=== PATIENT | male | born 1965 | race Caucasian/White ===

== ENCOUNTER 2017-08-07 07:47 | Observation (INO) | payer BC ==
--- NOTE | 2017-08-07 08:03 | ED ---
Chest Pain HPI - General Chief Complaint: Chest Pain Stated Complaint: CHEST PAIN Time Seen by Provider: 08/07/17 07:54 Source: patient, RN notes reviewed Mode of arrival: wheelchair Limitations: no limitations - History of Present Illness Initial Comments: This is a 52-year-old male history of hypertension states he started having midsternal chest tightness and achiness at work yesterday. He's not sure whether is anxiety related or not having difficulty with some costovertebral the pain started it persisted intermittently throughout the night recently occurring currently he is pain-free he does state he took his medications this morning including 2 full-strength aspirin. He has 6 mother supplements. He had no known history of heart disease he is nonsmoker no family history of early heart disease. MD Complaint: chest pain - Related Data Home Medications Medication Instructions Recorded Confirmed Aspirin 81 mg PO DAILY 10/15/14 08/07/17 Flaxseede(Dose Unknown) 1 tab PO DAILY 10/15/14 08/07/17 Lysine(Dose Unknown) 1 tab PO DAILY 10/15/14 08/07/17 Ubidecarenone [Co Q-10] 200 mg PO DAILY 10/15/14 08/07/17 Cyanocobalamin [Vitamin B-12] 500 mcg PO DAILY 02/20/15 08/07/17 Arginine [l-Arginine] 500 mg PO DAILY 08/07/17 08/07/17 Metoprolol Tartrate [Lopressor] 100 mg PO DAILY 08/07/17 08/07/17 Vitamin E 1,000 unit PO DAILY 08/07/17 08/07/17 Allergies Allergy/AdvReac Type Severity Reaction Status Date / Time No Known Allergies Allergy Verified 08/07/17 08:27 Review of Systems ROS Statement: Those systems with pertinent positive or pertinent negative responses have been documented in the HPI. ROS Other: All systems not noted in ROS Statement are negative. EKG Findings - EKG Results: EKG: interpreted by ARELY, sinus rhythm (Normal sinus rhythm of 76. Interval 158 QRS duration 80 QT since QTC 360/[address]-T wave changes.) Past Medical History Past Medical History: Chest Pain / Angina, Hypertension, Osteoarthritis (OA) Additional Past Medical History / Comment(s): hx gout History of Any Multi-Drug Resistant Organisms: None Reported Past Surgical History: Joint Replacement Additional Past Surgical History / Comment(s): LEFT HIP 10/21/14, oral surgery, TOTAL RIGHT HIP 03/02/15 Past Anesthesia/Blood Transfusion Reactions: No Reported Reaction Past Psychological History: No Psychological Hx Reported Smoking Status: Never smoker Past Alcohol Use History: Daily Past Drug Use History: None Reported - Past Family History Mother Family Medical History: No Reported History General Exam - General Exam Comments Initial Comments: This a well-developed well-nourished awake alert oriented times 3 male Limitations: no limitations General appearance: alert, anxious Head exam: Present: atraumatic, normocephalic, normal inspection Eye exam: Present: normal appearance, PERRL, EOMI. Absent: scleral icterus, conjunctival injection, periorbital swelling ENT exam: Present: normal exam, mucous membranes moist Neck exam: Present: normal inspection. Absent: tenderness, meningismus, lymphadenopathy Respiratory exam: Present: normal lung sounds bilaterally. Absent: respiratory distress, wheezes, rales, rhonchi, stridor Cardiovascular Exam: Present: regular rate, normal rhythm, normal heart sounds. Absent: systolic murmur, diastolic murmur, rubs, gallop, clicks GI/Abdominal exam: Present: soft, normal bowel sounds. Absent: distended, tenderness, guarding, rebound, rigid Extremities exam: Present: normal inspection, full ROM, normal capillary refill. Absent: tenderness, pedal edema, joint swelling, calf tenderness Back exam: Present: normal inspection Neurological exam: Present: alert, oriented X3, CN II-XII intact Psychiatric exam: Present: normal affect, normal mood Skin exam: Present: warm, dry, intact, normal color. Absent: rash Course Vital Signs 08/07/17 08/07/17 08/07/17 07:50 07:59 08:48 Temperature 98.3 F Pulse Rate 75 70 69 Respiratory 16 20 20 Rate Blood Pressure 194/116 218/122 184/122 O2 Sat by Pulse 99 99 98 Oximetry 08/07/17 08/07/17 08/07/17 09:15 09:20 09:36 Temperature Pulse Rate 68 68 67 Respiratory 20 20 18 Rate Blood Pressure 192/108 198/113 201/99 O2 Sat by Pulse 98 99 98 Oximetry 08/07/17 08/07/17 10:07 10:56 Temperature Pulse Rate 65 65 Respiratory 18 18 Rate Blood Pressure 171/95 170/97 O2 Sat by Pulse 98 98 Oximetry Chest Pain MDM - MDM X-rays reveal no acute findings I did reevaluate the patient several occasions he has no further chest pain. Blood pressure is improved after medications due to the circumstances he will be admitted for evaluation of chest pain. I did discuss this with the patient has family. Critical Care Time Critical Care Time: Yes Critical Care Time: 31 minutes of critical care time which didn't include initial presentation with history physical labs x-rays several reevaluation of the patient discussed with patient family regarding the findings discussed with the admitting physician admission orders and documentation of the above. Disposition Clinical Impression: Unstable angina pectoris, Chest pain, Hypertension Disposition: ADMITTED IP TO THIS [facility] Condition: Stable Referrals: Mark Deng MD [Primary Care Provider] - 1-2 days
[2017-08-07 08:20] LABS: Basophils % (A) 1 %; Eosinophils # (A) 0.1 k/uL (0-0.7); Eosinophils % (A) 2 %; HCT 45.3 % (39.0-53.0); HGB 15.2 gm/dL (13.0-17.5); Lymphocytes # (A) 1.8 k/uL (1.0-4.8); Lymphocytes % (A) 30 %; MCH 33.1 pg (25.0-35.0); MCHC 33.6 g/dL (31.0-37.0); MCV 98.7 fL (80.0-100.0); Mean Platelet Volume 7.2; Monocytes # (A) 0.5 k/uL (0-1.0); Monocytes % (A) 8 %; Neutrophils # (A) 3.4 k/uL (1.3-7.7); Neutrophils % (A) 57 %; Platelet Count 199 k/uL (150-450); RBC 4.59 m/uL (4.30-5.90); RDW 12.7 % (11.5-15.5)
--- NOTE | 2017-08-07 08:22 | XR ---
EXAMINATION TYPE: XR chest 2V DATE OF EXAM: 08/07/2017 COMPARISON: None HISTORY: 52-year-old male with chest pain TECHNIQUE: PA and lateral views FINDINGS: Heart normal size. Aorta and pulmonary vasculature within normal limits. Low lung volumes with crowde d vascular markings. Some focal eventration of the left hemidiaphragm. Patchy medial right basilar an d left basilar opacities are present. No pleural effusion. Likely posttraumatic bony deformity along the distal third clavicle. IMPRESSION: 1. Hypoventilatory changes. 2. Some patchy bibasilar densities probably represent atelectasis. Correlate clinically to exclude in fectious infiltrates.
[2017-08-07 08:26] LABS: ALT 41 U/L (21-72); AST 50 U/L (17-59); Albumin 4.3 g/dL (3.5-5.0); Alkaline Phosphatase 70 U/L (38-126); Anion Gap 15 mmol/L; Blood Urea Nitrogen 17 mg/dL (9-20); Carbon Dioxide 21 mmol/L (22-30); Chloride 103 mmol/L (98-107); Glucose 93 mg/dL (74-99); Magnesium 1.6 mg/dL (1.6-2.3); Potassium 4.3 mmol/L (3.5-5.1); Sodium 139 mmol/L (137-145); Total Bilirubin 0.6 mg/dL (0.2-1.3); Total Protein 7.2 g/dL (6.3-8.2)
[2017-08-07 08:36] LABS: Creatine Kinase 175 U/L (55-170)
[2017-08-07 08:40] LABS: D-Dimer 0.4 mg/L FEU (<0.60); Partial Thromboplastin Time 24.2 sec (22.0-30.0); Prothrombin Time 10.2 sec (9.0-12.0)
[2017-08-07 08:48] LABS: Troponin I <0.012 ng/mL (0.000-0.034)
[2017-08-07 08:59] LABS: Creatine Kinase MB 3.1 ng/mL (0.0-2.4)
[2017-08-07] MEDS ORDERED: METOPROLOL TARTRATE 5 MG/5 ML VIAL IVP STA (09:08)
[2017-08-07] MEDS ORDERED: NITROGLYCERIN SL TABS 0.4 MG TAB SUBLINGUAL PRN (11:08)
[2017-08-07] MEDS ORDERED: HEPARIN SODIUM,PORCINE 5,000 UNIT/ML 1 ML VIAL IV ONE (11:08)
[2017-08-07] MEDS ORDERED: HEPARIN SOD,PORK IN 0.45% NACL 25,000 UNIT in 0.45% NACL 1 500ML.BAG IV SCH (11:15)
[2017-08-07] MEDS: SODIUM CHLORIDE 0.9% 1,000 ML IV SCH (11:52)
--- NOTE | 2017-08-07 13:15 | P.HPIM ---
History of Present Illness H&P Date: 08/07/17 Chief Complaint: Chest pain This is a 52-year-old male history of hypertension states he started having midsternal chest tightness and achiness at work yesterday. He's not sure whether is anxiety related or not having difficulty with some costovertebral the pain started it persisted intermittently throughout the night recently occurring currently he is pain-free he does state he took his medications this morning including 2 full-strength aspirin. He has 6 mother supplements. He had no known history of heart disease he is nonsmoker no family history of early heart disease. While in ED patient workup showed EKG which was normal sinus rhythm without any acute ST or T-wave changes; chest x-ray was done which was unremarkable; patient is being admitted to the hospital for further evaluation of chest pain and cardiology evaluation Review of Systems Constitutional: Denies anorexia, Denies fever, Denies weight loss Eyes: denies blurred vision, denies diplopia, denies discharge Ears, nose, mouth and throat: Denies headache, Denies nasal congestion Cardiovascular: Reports chest pain, Reports high blood pressure, Reports shortness of breath, Denies irregular heart beat, Denies lightheadedness, Denies palpitations Respiratory: Reports dyspnea, Denies wheezing Gastrointestinal: Denies abdominal pain, Denies nausea, Denies vomiting Genitourinary: Denies dysuria, Denies hematuria, Denies polyuria Neurological: Denies balance difficulties, Denies change in mentation, Denies weakness, Denies visual changes Psychiatric: Reports anxiety, Denies confusion Endocrine: Denies cold intolerance, Denies heat intolerance, Denies polydipsia, Denies polyuria Past Medical History Past Medical History: Chest Pain / Angina, Hypertension, Osteoarthritis (OA) Additional Past Medical History / Comment(s): hx gout History of Any Multi-Drug Resistant Organisms: None Reported Past Surgical History: Joint Replacement Additional Past Surgical History / Comment(s): LEFT HIP 10/21/14, oral surgery, TOTAL RIGHT HIP 03/02/15 Past Anesthesia/Blood Transfusion Reactions: No Reported Reaction Past Psychological History: No Psychological Hx Reported Smoking Status: Never smoker Past Alcohol Use History: Daily Past Drug Use History: None Reported - Past Family History Mother Family Medical History: No Reported History Medications and Allergies Home Medications Medication Instructions Recorded Confirmed Type Aspirin 81 mg PO DAILY 10/15/14 08/07/17 History Flaxseede(Dose Unknown) 1 tab PO DAILY 10/15/14 08/07/17 History Lysine(Dose Unknown) 1 tab PO DAILY 10/15/14 08/07/17 History Ubidecarenone [Co Q-10] 200 mg PO DAILY 10/15/14 08/07/17 History Cyanocobalamin [Vitamin B-12] 500 mcg PO DAILY 02/20/15 08/07/17 History Arginine [l-Arginine] 500 mg PO DAILY 08/07/17 08/07/17 History Metoprolol Tartrate [Lopressor] 100 mg PO DAILY 08/07/17 08/07/17 History Vitamin E 1,000 unit PO DAILY 08/07/17 08/07/17 History Allergies Allergy/AdvReac Type Severity Reaction Status Date / Time No Known Allergies Allergy Verified 08/07/17 08:27 Physical Exam Vitals: Vital Signs Temp Pulse Resp BP Pulse Ox 08/07/17 12:17 71 18 151/84 96 08/07/17 10:56 65 18 170/97 98 08/07/17 10:07 65 18 171/95 98 08/07/17 09:36 67 18 201/99 98 08/07/17 09:20 68 20 198/113 99 08/07/17 09:15 68 20 192/108 98 08/07/17 08:48 69 20 184/122 98 08/07/17 07:59 70 20 218/122 99 08/07/17 07:50 98.3 F 75 16 194/116 99 Intake and Output 08/06/17 08/07/17 08/07/17 22:59 06:59 14:59 Other: Weight 106.594 kg - Constitutional General appearance: Present: average body habitus, cooperative, no acute distress - EENT Eyes: Present: anicteric sclerae, EOMI, PERRLA, normal appearance ENT: Present: hearing grossly normal, normal oropharynx Ears: bilateral: normal - Neck Neck: Present: normal ROM. Absent: lymphadenopathy, rigidity, thyromegaly Carotids: negative: bruit present Thyroid: bilateral: normal size, negative: enlarged, nodule - Respiratory Respiratory: bilateral: CTA, negative: rales, rhonchi, wheezing - Cardiovascular Rhythm: regular Heart sounds: normal: S1, S2 Abnormal Heart Sounds: Absent: systolic murmur, diastolic murmur - Gastrointestinal General gastrointestinal: Present: normal bowel sounds, soft. Absent: distended , organomegaly, tenderness - Genitourinary Genitourinary Comment(s): deferred - Integumentary Integumentary: Present: normal turgor. Absent: jaundiced, rash, ulcer - Neurologic Neurologic: Present: CNII-XII intact. Absent: focal deficits - Musculoskeletal Musculoskeletal: Present: gait normal, strength equal bilaterally - Psychiatric Psychiatric: Present: A&O x's 3, appropriate affect, intact judgment & insight Results CBC & Chem 7: 08/07/17 08:07 08/07/17 08:07 Labs: Abnormal Lab Results - Last 24 Hours (Table) 08/07/17 08/07/17 Range/Units 08:07 08:07 Carbon Dioxide 21 L (22-30) mmol/L Total Creatine Kinase 175 H (55-170) U/L CK-MB (CK-2) 3.1 H* (0.0-2.4) ng/mL Assessment and Plan Assessment: 1. Chest pain rule out acute coronary syndrome 2. Uncontrolled hypertension 3. Osteoarthritis 4. DVT prophylaxis Plan; We will admit the patient to cardiac telemetry; monitor EKG and trend troponins and order a lipid panel; we will continue patient on aspirin and beta blockers; we will use sublingual nitroglycerin for chest pain; monitor blood pressure closely and adjust medications if remains elevated; we will recommend echocardiogram and possible stress testing; cardiology is consulted and we will defer cardiac evaluation to cardiology service. Time with Patient: Less than 30
[2017-08-07 14:40] LABS: Creatine Kinase 130 U/L (55-170)
[2017-08-07 14:52] LABS: Creatine Kinase MB 2.3 ng/mL (0.0-2.4); Troponin I <0.012 ng/mL (0.000-0.034)
[2017-08-07 19:11] LABS: Creatine Kinase 112 U/L (55-170)
[2017-08-07 19:24] LABS: Creatine Kinase MB 1.7 ng/mL (0.0-2.4); Troponin I <0.012 ng/mL (0.000-0.034)
[2017-08-07] MEDS ORDERED: METOPROLOL TARTRATE 50 MG TAB PO STA (23:17)
[2017-08-07] MEDS ORDERED: hydrALAZINE HCL 20 MG/ML 1 ML VIAL IVP PRN (23:18)
[2017-08-07] MEDS ORDERED: cloNIDine HCL 0.1 MG TAB PO PRN (23:19)
[2017-08-07] MEDS: amLODIPine 5 MG TAB PO SCH (23:40)
[2017-08-08 07:42] LABS: Cholesterol 176 mg/dL (<200); HDL Cholesterol 103 mg/dL (40-60); LDL Cholesterol,Calculated 49 mg/dL (0-99); Triglycerides 121 mg/dL (<150)
[2017-08-08 07:56] VITALS: RESP 18
--- NOTE | 2017-08-08 08:47 | P.CRDCN ---
History of Present Illness Consult date: 08/08/17 History of present illness: This is a 52-year-old gentleman with history of hypertension who has been experiencing some tightness and chest discomfort for the last week or so. He claims that he works at [employer] and is on his feet all day. Towards the end of the day, He claims that his blood pressure goes up and he feels a tight feeling across the chest. 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 No radiation of the discomfort. Not associated with nausea, vomiting or sweating. In view of ongoing symptoms patient came to the emergency room. His EKGs did not reveal any acute changes. Cardiac enzymes are negative. Patient is comfortable at the time of my examination. However, his blood pressure has been high. He was taking only metoprolol at home. Patient was started on Norvasc and also Catapres when necessary. Patient doesn't have diabetes or hypercholesterolemia. No family history of ischemic heart disease. Patient is being scheduled for stress echocardiogram and also surface echocardiogram. Review of Systems As per the chart Past Medical History Past Medical History: Chest Pain / Angina, Hypertension, Osteoarthritis (OA) Additional Past Medical History / Comment(s): hx gout History of Any Multi-Drug Resistant Organisms: None Reported Past Surgical History: Joint Replacement Additional Past Surgical History / Comment(s): LEFT HIP 10/21/14, oral surgery, TOTAL RIGHT HIP 03/02/15 Past Anesthesia/Blood Transfusion Reactions: No Reported Reaction Smoking Status: Never smoker - Past Family History Father Family Medical History: Hyperlipidemia, Hypertension Additional Family Medical History / Comment(s): AT AGE 8 HAD DIPTHERIA Mother Family Medical History: No Reported History Additional Family Medical History / Comment(s): ARTHRITIS, DJD Medications and Allergies Home Medications Medication Instructions Recorded Confirmed Type Aspirin 81 mg PO DAILY 10/15/14 08/07/17 History Flaxseede(Dose Unknown) 1 tab PO DAILY 10/15/14 08/07/17 History Lysine(Dose Unknown) 1 tab PO DAILY 10/15/14 08/07/17 History Ubidecarenone [Co Q-10] 200 mg PO DAILY 10/15/14 08/07/17 History Cyanocobalamin [Vitamin B-12] 500 mcg PO DAILY 02/20/15 08/07/17 History Arginine [l-Arginine] 500 mg PO DAILY 08/07/17 08/07/17 History Metoprolol Tartrate [Lopressor] 100 mg PO DAILY 08/07/17 08/07/17 History Vitamin E 1,000 unit PO DAILY 08/07/17 08/07/17 History Allergies Allergy/AdvReac Type Severity Reaction Status Date / Time No Known Allergies Allergy Verified 08/07/17 08:27 Physical Exam Vitals: Vital Signs Temp Pulse Pulse Resp BP BP Pulse Ox 08/08/17 07:25 98.3 F 69 18 172/94 95 08/08/17 03:53 16 08/08/17 03:41 69 16 183/86 98 08/08/17 02:03 98.2 F 68 18 192/94 97 08/08/17 00:00 16 08/07/17 23:14 98.5 F 85 16 217/112 96 08/07/17 20:00 16 08/07/17 19:17 98.1 F 90 16 198/93 96 08/07/17 18:12 98.5 F 100 18 161/102 97 08/07/17 17:35 97.6 F 75 18 150/86 99 08/07/17 14:18 75 18 165/93 97 08/07/17 12:17 71 18 151/84 96 08/07/17 10:56 65 18 170/97 98 08/07/17 10:07 65 18 171/95 98 08/07/17 09:36 67 18 201/99 98 08/07/17 09:20 68 20 198/113 99 08/07/17 09:15 68 20 192/108 98 08/07/17 08:48 69 20 184/122 98 Intake and Output 08/07/17 08/08/17 08/08/17 22:59 06:59 14:59 Intake Total 154.589 163.178 Balance 154.589 163.178 Intake: Intake, IV Titration 154.589 163.178 Amount Heparin Sod,Pork in 0.45% 154.589 163.178 NaCl 25,000 unit In 0.45 % NaCl 1 500ml.bag @ 9.38 UNITS/KG/HR 19.99 mls/hr IV .Q24H [facility] Rx#: [id number] Other: Voiding Method Toilet Toilet # Voids 1 Weight 106.1 kg GENERAL EXAM: Patient is alert and oriented and doesn't appear to be in any acute distress HEENT: Normocephalic. Normal reaction of pupils, equal size, normal range of extraocular motion. No erythema or exudates in the throat. NECK: No masses, no nuchal rigidity. CHEST: No chest wall deformity. LUNGS: Equal air entry with no crackles or wheeze. HEART: S1 and S2 normal with no audible mumurs or gallops. Regular rhythm, femorals equal on both sides.. ABDOMEN: No hepatosplenomegaly, normal bowel sounds, no guarding or rigidity. SKIN: No rashes CENTRAL NERVOUS SYSTEM: No focal deficits. EXTREMITIES: No cyanosis, clubbing or edema. Results 08/07/17 08:07 08/07/17 08:07 Cardiac Enzymes 08/07/17 08/07/17 08/07/17 Range/Units 08:07 14:05 18:31 CK-MB (CK-2) 3.1 H* 2.3 1.7 (0.0-2.4) ng/mL Troponin I <0.012 <0.012 <0.012 (0.000-0.034) ng/mL Coagulation 08/07/17 08/07/17 08/08/17 Range/Units 08:07 18:31 01:13 PT 10.2 (9.0-12.0) sec APTT 24.2 32.3 H 40.8 H (22.0-30.0) sec 08/08/17 Range/Units 06:56 PT (9.0-12.0) sec APTT 49.1 H (22.0-30.0) sec Lipids 08/08/17 Range/Units 06:56 Triglycerides 121 (<150) mg/dL Cholesterol 176 (<200) mg/dL HDL Cholesterol 103 H (40-60) mg/dL Current Medications Generic Name Dose Route Start Last Admin Trade Name Freq PRN Reason Stop Dose Admin Amlodipine Besylate 5 mg 08/07/17 23:30 08/07/17 23:40 Norvasc PO 5 mg DAILY MARIAH Administration Aspirin 325 mg 08/08/17 09:00 Aspirin PO DAILY MARIAH Clonidine 0.1 mg 08/07/17 23:19 Catapres PO Q4HR PRN Hypertension Hydralazine HCl 10 mg 08/07/17 23:18 08/08/17 02:00 Apresoline IVP 10 mg Q4HR PRN Administration Blood Pressure - High Heparin Sodium/Sodium Chloride 500 mls @ 19.99 mls/hr 08/07/17 11:15 01:45 25,000 unit/ Sodium Chloride IV 14.38 units/kg/hr .Q24H MARIAH 30.65 mls/hr Titration Protocol 9.38 UNITS/KG/HR Sodium Chloride 1,000 mls @ 20 mls/hr 08/07/17 11:15 08/07/17 11:52 Saline 0.9% IV 20 mls/hr .Q24H MARIAH Administration Metoprolol Tartrate 100 mg 08/08/17 09:00 Lopressor PO DAILY MARIAH Nitroglycerin 0.4 mg 08/07/17 11:08 Nitrostat SUBLINGUAL Q5M PRN Chest Pain Intake and Output 08/07/17 08/08/17 08/08/17 22:59 06:59 14:59 Intake Total 154.589 163.178 Balance 154.589 163.178 Intake: Intake, IV Titration 154.589 163.178 Amount Heparin Sod,Pork in 0.45% 154.589 163.178 NaCl 25,000 unit In 0.45 % NaCl 1 500ml.bag @ 9.38 UNITS/KG/HR 19.99 mls/hr IV .Q24H [facility] Rx#: [id number] Other: Voiding Method Toilet Toilet # Voids 1 Weight 106.1 kg 08/07/17 08:07 08/07/17 08:07 EKG Interpretations (text) Sinus rhythm Assessment and Plan (1) Chest pain Current Visit: Yes Status: Acute Code(s): R07.9 - CHEST PAIN, UNSPECIFIED SNOMED Code(s): 73182928 (2) Hypertension Current Visit: Yes Status: Acute Code(s): I10 - ESSENTIAL (PRIMARY) HYPERTENSION SNOMED Code(s): 71202007 (3) Degenerative joint disease Current Visit: No Status: Acute Code(s): M19.90 - UNSPECIFIED OSTEOARTHRITIS , UNSPECIFIED SITE SNOMED Code(s): 848190585 Plan: Patient is admitted with recurrent episodes of chest pain and uncontrolled hypertension. So far cardiac enzymes and EKGs are negative. We'll proceed with a stress echocardiogram and also surface echocardiogram. Further recommendations depend upon the findings on the tests
[2017-08-08] MEDS ORDERED: LISINOPRIL 5 MG TAB PO SCH (09:00)
[2017-08-08] MEDS ORDERED: ASPIRIN 325 MG TAB PO SCH (09:00)
[2017-08-08] MEDS ORDERED: METOPROLOL TARTRATE 50 MG TAB PO SCH (09:00)
[2017-08-08] MEDS: SODIUM CHLORIDE 0.9% 1,000 ML IV SCH (12:22)
[2017-08-08] MEDS: amLODIPine 5 MG TAB PO SCH (12:26)
[2017-08-08 12:32] VITALS: BP 150/109; PULSE 103; TEMP 98.5
--- NOTE | 2017-08-08 13:12 | ECHOS ---
STRESS ECHOCARDIOGRAM DATE OF SERVICE: 08/08/2017 INDICATIONS: Chest pain. MEDICATIONS: BASELINE HEART RATE: 112 BASELINE BLOOD PRESSURE: 139/83 MAXIMUM HEART RATE: 158 MAXIMUM BLOOD PRESSURE: 212/111 85% MPHR: 141 100% MPHR: 166 METS: 4.6 MAXIMUM STAGE REACHED: I TOTAL EXERCISE TIME: 3-1/2 minutes CLINICAL INFORMATION: This patient when he came in for the stress test is resting heart rate was 112, but when he came on to stand up on the treadmill to walk his heart rate was already 130 beats per minute. He seemed to be a bit anxious. The patient walked for 3-1/2 minutes on a standard Ish protocol, achieved a maximal heart rate of 158 beats per minute which is more than 85% of predicted maximal. He had hypertensive response to exercise. Resting blood pressure was 139/83 and peak blood pressure was 212/111. At peak exercise, the patient did not have any angina or any significant arrhythmia. EKG did not reveal any ST-segment changes to indicate ischemia. This is technically a negative stress test with limited exercise capacity. The patient had a hypertensive response to exercise and he was already tachycardic to begin with. Baseline echo images revealed normal wall motion and wall thickening of all segments. At peak exercise, the quality of images were suboptimal, but there is no evidence to suggest any clear-cut ischemia on this stress echocardiogram. FINAL IMPRESSION: 1. Limited exercise capacity with sinus tachycardia to begin with. EKG part of the stress test was unremarkable for ischemia with limited exercise capacity and hypertensive response to exercise. 2. Echo images were suboptimal, but there is no clear-cut evidence to suggest any ischemia. MMODL / IJN: [id number] /
--- NOTE | 2017-08-08 23:19 | P.DS ---
Providers Date of admission: 08/07/17 11:08 Expected date of discharge: 08/08/17 Attending physician: Mark Deng Consults: 08/07/17 11:08 Consult Physician Urgent Consulting Provider: Tish Durham Consult Reason/Comments: Chest pain Do you want consulting provider notified?: Yes Primary care physician: Mark Deng Hospital Course: Discharge diagnosis 1. Chest pain ruled out acute coronary syndrome. Negative stress echocardiogram. 2. Hypertensive urgency. on admission. Blood pressure fairly Controlled now 3. Osteoarthritis 4. DVT prophylaxis Hospital course This is a 52-year-old male history of hypertension states he started having midsternal chest tightness and achiness at work yesterday. He's not sure whether is anxiety related or not having difficulty with some costovertebral the pain started it persisted intermittently throughout the night recently occurring currently he is pain-free he does state he took his medications this morning including 2 full-strength aspirin. He has 6 mother supplements. He had no known history of heart disease he is nonsmoker no family history of early heart disease. While in ED patient workup showed EKG which was normal sinus rhythm without any acute ST or T-wave changes; chest x-ray was done which was unremarkable; patient is being admitted to the hospital for further evaluation of chest pain and cardiology evaluation. Patient was continued on telemetry monitoring. Serial troponins negative. D- dimer not elevated. Patient was seen by cardiology and recommended stress echocardiogram. Limited exercise capacity with sinus tachycardia to begin with. EKG part of the stress test was unremarkable for ischemia. Echo images were suboptimal but there is no clear evidence of any ischemia. Currently patient is chest pain-free. Blood pressure is well controlled after adding Norvasc 5 mg daily and lisinopril 5 mg daily. Patient was recommended to monitor his blood pressure at home and follow with Dr. Deng as an outpatient early next week. Currently patient is symptom-free and is stable to be discharged home. PHYSICAL EXAMINATION: Patient is lying in the bed comfortably, no acute distress, awake alert and oriented.. HEENT: Normocephalic. Neck is supple. Pupils reactive. Nostrils clear. Oral cavity is moist. Ears reveal no drainage. Neck reveals no JVD, carotid bruits, or thyromegaly. CHEST EXAMINATION: Trachea is central. Symmetrical expansion. Lung bailey clear to auscultation and percussion. CARDIAC: Normal S1, S2 with no gallops. No murmurs ABDOMEN: Soft. Bowel sounds normal. No organomegaly. No abdominal bruits. Extremities: reveal no edema. No clubbing or cyanosis Neurologically awake, alert, oriented x3 with well-coordinated movements. No focal deficits noted Skin: No rash or skin lesions. Psychiatric: Coperative. Nonsuicidal Musculoskeletal: No joint swelling or deformity. Normal range of motion. Vital Signs - 24 hr 08/08/17 08/08/17 08/08/17 00:00 02:03 03:41 Temperature 98.2 F Pulse Rate [ 68 69 Pulse Oximetery ] Respiratory 16 18 16 Rate Blood Pressure 192/94 183/86 [Right Arm] O2 Sat by Pulse 97 98 Oximetry 08/08/17 08/08/17 08/08/17 03:53 07:25 11:09 Temperature 98.3 F Pulse Rate [ 69 Pulse Oximetery ] Respiratory 16 18 18 Rate Blood Pressure 172/94 [Right Arm] O2 Sat by Pulse 95 Oximetry 08/08/17 12:30 Temperature 98.5 F Pulse Rate [ 103 H Pulse Oximetery ] Respiratory 18 Rate Blood Pressure 150/109 [Right Arm] O2 Sat by Pulse 98 Oximetry Patient Condition at Discharge: Stable Plan - Discharge Summary Discharge Rx Participant: Yes New Discharge Prescriptions: Continue Aspirin 81 mg PO DAILY Ubidecarenone [Co Q-10] 200 mg PO DAILY Lysine(Dose Unknown) 1 tab PO DAILY Flaxseede(Dose Unknown) 1 tab PO DAILY Cyanocobalamin [Vitamin B-12] 500 mcg PO DAILY Arginine [l-Arginine] 500 mg PO DAILY Metoprolol Tartrate [Lopressor] 100 mg PO DAILY Vitamin E 1,000 unit PO DAILY Discharge Medication List Aspirin 81 mg PO DAILY 10/15/14 [History] Flaxseede(Dose Unknown) 1 tab PO DAILY 10/15/14 [History] Lysine(Dose Unknown) 1 tab PO DAILY 10/15/14 [History] Ubidecarenone [Co Q-10] 200 mg PO DAILY 10/15/14 [History] Cyanocobalamin [Vitamin B-12] 500 mcg PO DAILY 02/20/15 [History] Arginine [l-Arginine] 500 mg PO DAILY 08/07/17 [History] Metoprolol Tartrate [Lopressor] 100 mg PO DAILY 08/07/17 [History] Vitamin E 1,000 unit PO DAILY 08/07/17 [History] Follow up Appointment(s)/Referral(s): Mark Deng MD [Primary Care Provider] - 1-2 days Calderon Ortez MD [STAFF PHYSICIAN] - 08/31/17 1:30 pm Patient Instructions/Handouts: Chest Pain (DC) Discharge Disposition: HOME SELF-CARE
== END 2017-08-08 15:20 | disposition home or self-care (01) ==
LOC: EC 07:47 → 3OBS 11:08
PROVIDERS: ADMIT Family Medicine; ATTEND Family Medicine
DX: R07.89 Other chest pain (principal); I16.0 Hypertensive urgency; M19.90 Unspecified osteoarthritis, unspecified site; I10 Essential (primary) hypertension; Z79.82 Long term (current) use of aspirin; Z79.899 Other long term (current) drug therapy; Z82.49 Family history of ischemic heart disease and other diseases of the circulatory system
CPT/HCPCS: 99291; 96365; 96375 ×3; 96376 ×2; 96366 ×8; 36415; 93005; 93306; 93351; 85379; 83880; 80061; 80053; 84443; 82550; 82553; 83735; 84484; 85025; 85610; 85730 ×2; 71046; G0378 ×2; J0360; J1644 ×2

== ENCOUNTER 2023-11-24 15:50 | Emergency (ER) | payer BC ==
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
--- NOTE | 2023-11-24 19:13 | XR ---
EXAMINATION TYPE: XR shoulder complete RT DATE OF EXAM: 11/24/2023 COMPARISON: None HISTORY: Dislocation TECHNIQUE: 2 view right shoulder FINDINGS: Humeral head is dislocated from the glenoid. Acromioclavicular junction is visualized appea rs normal. Acute fracture is not identified. IMPRESSION: 1. Dislocation of the humeral head from the glenoid [facility], Workstation: [facility], 11/24/2023 7:10 PM
[2023-11-24 20:24] VITALS: RESP 16
[2023-11-24] MEDS: SODIUM CHLORIDE 0.9% 1,000 ML IV STA (20:38)
[2023-11-24] MEDS: PROPOFOL 10 MG/ML 20 ML VIAL IV ONE ×2 (21:54→22:30)
--- NOTE | 2023-11-24 22:12 | XR ---
EXAMINATION TYPE: XR shoulder limited RT DATE OF EXAM: 11/24/2023 CLINICAL HISTORY: Post reduction of dislocation TECHNIQUE: Single view of the right shoulder is obtained. COMPARISON: Right shoulder x-ray earlier today.. FINDINGS: Single view shows improved alignment of the humeral head relative to the glenohumeral joint consistent with successful reduction of the anterior glenohumeral joint dislocation. IMPRESSION: As above. [facility], , 11/24/2023 10:10 PM
[2023-11-25 00:14] VITALS: BP 136/92; PULSE 67; TEMP 97.8
== END 2023-11-24 23:15 | disposition home or self-care (01) ==
LOC: EC 15:50
CPT/HCPCS: 23650; 96361; 96374; 99152; 99283